=== PATIENT | male | born 1990 | race African-American/Black ===

== ENCOUNTER 2019-10-03 20:21 | Emergency (ER) | payer SELFPAY ==
[~2019-10-03] VITALS: Ht 177.8 cm; Wt 62.0 kg
[2019-10-03] MEDS ORDERED: BACITRACIN ZINC OINT UDPKT TOP ONE (22:30)
[2019-10-03] MEDS ORDERED: LIDOCAINE HCL/PF 1% 10 MG/ML 5ML VIAL IJ ONE (22:30)
[2019-10-03] MEDS ORDERED: HYDROCODONE/ACETAMINOPHEN 5/325MG TABLET PO ONE (22:45)
[2019-10-03 23:36] VITALS: BP 116/68
== END 2019-10-03 23:38 | disposition home or self-care (01) ==
LOC: ER 20:21
DX: S61.012A Laceration without foreign body of left thumb without damage to nail, initial encounter (principal); Z90.49 Acquired absence of other specified parts of digestive tract; W26.8XXA Contact with other sharp object(s), not elsewhere classified, initial encounter; Y93.89 Activity, other specified; Y92.018 Other place in single-family (private) house as the place of occurrence of the external cause
CPT/HCPCS: 12002; 73130; 99283; J3490; Z7610

== ENCOUNTER 2021-03-31 20:39 | Emergency (ER) | payer BC ==
[~2021-03-31] VITALS: Ht 177.8 cm; Wt 66.0 kg
[2021-03-31 20:45] VITALS: BP 141/84
[2021-03-31] MEDS ORDERED: BENZ-16 MT (23:13)
[2021-03-31] MEDS ORDERED: IBUP-2029 MT (23:13)
== END 2021-03-31 23:38 | disposition home or self-care (01) ==
LOC: ER 20:39
DX: B34.9 Viral infection, unspecified (principal); Z13.9 Encounter for screening, unspecified; Z90.49 Acquired absence of other specified parts of digestive tract
CPT/HCPCS: 71045; 99283